=== PATIENT | female | born 1985 | race African-American/Black ===

== ENCOUNTER 2017-05-21 01:18 | Emergency (ER) | payer OTHER ==
[2017-05-21 05:28] VITALS: BP 122/63
== END 2017-05-21 05:20 | disposition home or self-care (01) ==
LOC: ED 01:18
DX: S16.1XXA Strain of muscle, fascia and tendon at neck level, initial encounter (principal); S39.012A Strain of muscle, fascia and tendon of lower back, initial encounter; V43.52XA Car driver injured in collision with other type car in traffic accident, initial encounter; Y93.89 Activity, other specified; Y99.8 Other external cause status; Y92.411 Interstate highway as the place of occurrence of the external cause